=== PATIENT | female | born 2000 ===

== ENCOUNTER → 2022-04-21 | Outpatient (REF) | payer OTHER ==
[2022-04-21 22:39] LABS: URINE PREG TEST NEGATIVE (NEGATIVE)
[2022-04-22 00:13] LABS: GC DNA AMPLIFICATION NEGATIVE (NEGATIVE)
== END ==
LOC: M LAB REF 22:26
PROVIDERS: ATTEND Physician Assistant
DX: Z03.79 Encounter for other suspected maternal and fetal conditions ruled out (principal); Z11.3 Encounter for screening for infections with a predominantly sexual mode of transmission